=== PATIENT | male | born 1955 | race Caucasian/White ===

== ENCOUNTER 2022-09-06 20:53 | Emergency (ER) | payer MEDICARE, MEDICAID ==
[~2022-09-06] VITALS: Ht 175.3 cm; Wt 75.0 kg
[2022-09-06 21:33] LABS: BASOPHILS # (AUTO) 0.1 X10'3 (0-0.2); BASOPHILS % (AUTO) 0.7 % (0-1); EOSINOPHILS # (AUTO) 0.2 X10'3 (0-0.9); EOSINOPHILS % (AUTO) 2.7 % (0-6); HEMATOCRIT 41.6 % (42.0-52.0); HEMOGLOBIN 13.8 g/dl (14.0-17.9); LYMPHOCYTES # (AUTO) 1.8 X10'3 (1.1-4.8); LYMPHOCYTES % (AUTO) 22.9 % (21-51); MEAN CORPUSCULAR HEMOGLOBIN 30.2 PG (27.0-31.0); MEAN CORPUSCULAR HGB CONC 33.2 g/dL (33.0-36.5); MEAN CORPUSCULAR VOLUME 90.8 FL (78-98); MONOCYTES # (AUTO) 0.8 X10'3 (0-0.9); MONOCYTES % (AUTO) 10.4 % (2-12); NEUTROPHILS % (AUTO) 63.3 % (42-75); PLATELET COUNT 204 X10'3 (140-440); RED BLOOD COUNT 4.58 X10'6 (4.70-6.10); RED CELL DISTRIBUTION WIDTH 14.9 % (11.5-14.5); WHITE BLOOD COUNT 7.8 X10'3 (4.5-11.0)
[2022-09-06 21:50] LABS: ALANINE AMINOTRANSFERASE 37 U/L (12-78); ALBUMIN 3.8 G/DL (3.4-5.0); ALBUMIN/GLOBULIN RATIO 0.9 (1.1-1.5); ALKALINE PHOSPHATASE 116 IU/L (46-116); ANION GAP 8 (8-16); ASPARTATE AMINO TRANSFERASE 25 U/L (10-37); BILIRUBIN,TOTAL 0.4 MG/DL (0.1-1.0); BLOOD UREA NITROGEN 21 MG/DL (7-18); BUN/CREATININE RATIO 22.3 (10.0-20.0); CALCIUM 9.2 MG/DL (8.5-10.1); CHLORIDE 104 MMOL/L (99-107); CREATININE 0.94 MG/DL (0.60-1.10); GLUCOSE 121 MG/DL (70-104); SODIUM 139 MMOL/L (135-145); TOTAL CARBON DIOXIDE 27.2 MMOL/L (24-32); eGFR 80 ML/MIN
[2022-09-07 02:00] VITALS: BP 155/100
== END 2022-09-07 02:01 | disposition home or self-care (01) ==
LOC: ER 20:53
DX: R06.02 Shortness of breath (principal); I11.0 Hypertensive heart disease with heart failure; I50.9 Heart failure, unspecified; E78.00 Pure hypercholesterolemia, unspecified
CPT/HCPCS: 36415; 71045; 80053; 83880; 84484; 85025; 93005; 99285

== ENCOUNTER 2023-10-30 10:05 | Day surgery (SDC) | payer MEDICARE, MEDICAID ==
[2023-10-30] VITALS (11 sets, daily range): BP systolic 103–158; BP diastolic 54–106; PULSE 61–75; RESP 12–18; TEMP 98.3; O2SAT 93–96
[~2023-10-30] VITALS: Ht 172.7 cm; Wt 95.3 kg
[2023-10-30] MEDS: normal saline 1000ml 1,000 ML IV SCH (10:40)
[2023-10-30] MEDS ORDERED: FURO20TA4 PO (10:52)
[2023-10-30] MEDS ORDERED: METO-411 PO (10:52)
[2023-10-30] MEDS ORDERED: MULT-1249 PO (10:52)
[2023-10-30] MEDS ORDERED: ASCO-105 PO (10:52)
[2023-10-30] MEDS ORDERED: SERT-432 PO (10:52)
[2023-10-30] MEDS ORDERED: DIVA-74 PO (10:52)
[2023-10-30] MEDS ORDERED: ATOR-2 PO (10:52)
[2023-10-30] MEDS ORDERED: CHOL100017 PO (10:52)
[2023-10-30] MEDS ORDERED: ASPI-1397 PO (10:52)
[2023-10-30] MEDS: MIDAZolam 1mg/ml 10ml vial IV ONE (13:11)
[2023-10-30] MEDS: fentaNYL/PF 50MCG/1 ML 2ML syringe IV ONE (13:11)
== END 2023-10-30 14:10 | disposition home or self-care (01) ==
LOC: SSTAY O 10:05
PROVIDERS: ATTEND Student in an Organized Health Care Education/Training Program
DX: R94.39 Abnormal result of other cardiovascular function study (principal); I11.9 Hypertensive heart disease without heart failure; I25.10 Atherosclerotic heart disease of native coronary artery without angina pectoris; E78.00 Pure hypercholesterolemia, unspecified; M19.90 Unspecified osteoarthritis, unspecified site; Z79.82 Long term (current) use of aspirin; Z79.899 Other long term (current) drug therapy
CPT/HCPCS: 94760; C8925; J2250; J3010; J7030; J7040; 93312

== ENCOUNTER 2024-05-02 05:44 | Day surgery (SDC) | payer MEDICARE, MEDICAID ==
[2024-04-30 11:33] LABS: BASOPHILS % (AUTO) 0.6 % (0-1); EOSINOPHILS # (AUTO) 0.2 X10'3 (0-0.9); EOSINOPHILS % (AUTO) 2.7 % (0-6); LYMPHOCYTES # (AUTO) 1.4 X10'3 (1.1-4.8); LYMPHOCYTES % (AUTO) 19.2 % (21-51); MEAN CORPUSCULAR HEMOGLOBIN 29.7 PG (27.0-31.0); MEAN CORPUSCULAR HGB CONC 33.1 g/dL (33.0-36.5); MEAN CORPUSCULAR VOLUME 89.6 FL (78-98); MEAN PLATELET VOLUME 8.8 FL (7.4-10.4); MONOCYTES # (AUTO) 0.7 X10'3 (0-0.9); MONOCYTES % (AUTO) 9.9 % (2-12); NEUTROPHILS # (AUTO) 4.8 X10'3 (1.8-7.7); NEUTROPHILS % (AUTO) 67.6 % (42-75); PRE OP HEMATOCRIT 42.8 % (42.0-52.0); PRE OP HEMOGLOBIN 14.2 g/dL (14.0-17.9); PRE OP PLATELET COUNT 270 X10'3 (140-440); PRE OP WHITE BLOOD COUNT 7.1 10'3 (4.8-10.8); RED BLOOD COUNT 4.77 X10'6 (4.70-6.10); RED CELL DISTRIBUTION WIDTH 14.7 % (11.5-14.5)
[2024-04-30 12:01] LABS: ALBUMIN 3.8 G/DL (3.4-5.0); ALKALINE PHOSPHATASE 63 IU/L (46-116); BLOOD UREA NITROGEN 16 MG/DL (7-18); BUN/CREATININE RATIO 18.4 (10.0-20.0); CALCIUM 9.5 MG/DL (8.5-10.1); CHLORIDE 106 MMOL/L (99-107); CREATININE 0.87 MG/DL (0.60-1.10); PRE OP ALT 33 U/L (30-65); PRE OP ANION GAP 6 (8-16); PRE OP AST 23 U/L (10-37); PRE OP BILIRUB, TOTAL 0.3 MG/DL (0.0-1.0); PRE OP GLUCOSE 77 MG/DL (70-104); PRE OP POTASSIUM 4.2 MMOL/L (3.4-5.1); PRE OP SODIUM 141 MMOL/L (135-145); TOTAL CARBON DIOXIDE 28.9 MMOL/L (24-32); TOTAL PROTEIN 7.8 G/DL (6.4-8.2); eGFR 87 ML/MIN
[2024-05-02] VITALS (15 sets, daily range): BP systolic 102–145; BP diastolic 66–99; PULSE 64–76; RESP 11–22; TEMP 98; O2SAT 90–98
[~2024-05-02] VITALS: Ht 175.3 cm; Wt 96.0 kg
[~2024-05-02 05:44] MED LIST: ACET-1025 PO; ACET-3414; ASCO-105 PO; ASPI-1397 PO; ATOR-2 PO; CHOL10006 PO; DIVA-74 PO; FENO160T; FURO20TA4 PO; METO-411 PO; MULT-1249 PO; SERT-432 PO; SOOTHE; [UNRECOGNIZED DRUG - OTHER]; ringers solution, lacted 1,000 ML IV SCH
[2024-05-02] MEDS: DOCUMENT DATE & TIME OF BETA-BLOCKER PO ONE (06:01)
[2024-05-02] MEDS: famotidine 20mg tablet PO ONE (06:29)
[2024-05-02] MEDS ORDERED: sevoflurane 250ml liquid IH ONE (07:25)
[2024-05-02] MEDS ORDERED: fentaNYL/PF 50MCG/1 ML 2ML syringe ONE (07:33)
[2024-05-02] MEDS ORDERED: midazolam 1 mg/ML 2ml injection ONE (07:33)
[2024-05-02] MEDS ORDERED: propofol inj 20 ML IV ONE (07:35)
[2024-05-02] MEDS ORDERED: LIDOcaine 1%/PF 5ML 10 MG/ML VIAL ONE (07:35)
[2024-05-02] MEDS ORDERED: ondansetron/PF 4mg/2ml inj IV PRN (07:40)
[2024-05-02] MEDS ORDERED: morphine 2 MG/ML inj. syringe IV PRN (07:40)
[2024-05-02] MEDS ORDERED: morphine 4 MG/ML inj SYRINge IV PRN (07:40)
[2024-05-02] MEDS ORDERED: enalaprilat 1.25mg/ml 2ml vial IV PRN (07:40)
[2024-05-02] MEDS ORDERED: acetaminophen 1,000mg/100ml IV 100 ML IV PRN (07:40)
[2024-05-02] MEDS ORDERED: ringers solution, lacted 1,000 ML IV SCH (07:40)
[2024-05-02] MEDS ORDERED: labetalol 20mg/4ml (5mg/ml) syringe IV PRN (07:40)
[2024-05-02] MEDS ORDERED: proCHLORperazine 10 MG/2 ml inj IV PRN (07:40)
[2024-05-02] MEDS ORDERED: meperidine/PF 25mg/ml syringe IV PRN ×3 (07:40)
[2024-05-02] MEDS ORDERED: rocuronium 10mg/ml inj IV ONE (08:02)
[2024-05-02] MEDS ORDERED: dexamethasone sod phosphate 4mg/ml inj. ONE (08:02)
[2024-05-02] MEDS: albuterol 2.5 MG/3 ML nebule NEB ONE (10:11)
== END 2024-05-02 10:37 | disposition home or self-care (01) ==
LOC: PAS 05:44
PROVIDERS: ATTEND Internal Medicine Critical Care Medicine
DX: R91.8 Other nonspecific abnormal finding of lung field (principal); E66.9 Obesity, unspecified; E78.5 Hyperlipidemia, unspecified; Z79.899 Other long term (current) drug therapy; Z98.890 Other specified postprocedural states; Z87.820 Personal history of traumatic brain injury; F32.A Depression, unspecified; Z68.31 Body mass index [BMI] 31.0-31.9, adult
CPT/HCPCS: 31624; 31627; 31628; 31629; 31653; 36415; 71250; 80053; 82948; 85025; 87015; 87070; 87116; 87206; 93005; 94640; 94760; A4615; A4618; J1100; J2250; J2405; J2704; J2710; J3010; J3490; J7120; Z7506; Z7508; Z7512; Z7610; 31622; 31625; 31626; 31654

== ENCOUNTER 2024-05-07 10:00 | Emergency (ER) | payer MEDICARE, MEDICAID ==
[~2024-05-07] VITALS: Ht 165.1 cm; Wt 99.5 kg
[~2024-05-07 10:00] MED LIST changes: -ringers solution, lacted 1,000 ML IV SCH
[2024-05-07] MEDS ORDERED: HYDR-3965 PO (11:45)
[2024-05-07] MEDS: HYDROcodone/acetaminophen 5mg/325mg tablet PO ONE (11:52)
[2024-05-07 11:55] VITALS: BP 164/88; PULSE 78; RESP 18; TEMP 97.7; O2SAT 97
== END 2024-05-07 11:57 | disposition home or self-care (01) ==
LOC: ER 10:01
DX: S29.8XXA Other specified injuries of thorax, initial encounter (principal); R07.89 Other chest pain; I11.0 Hypertensive heart disease with heart failure; I50.9 Heart failure, unspecified; E78.00 Pure hypercholesterolemia, unspecified; Z79.899 Other long term (current) drug therapy; Z79.82 Long term (current) use of aspirin; W18.39XA Other fall on same level, initial encounter; Y93.89 Activity, other specified; Y92.89 Other specified places as the place of occurrence of the external cause; Y99.8 Other external cause status
CPT/HCPCS: 71101; 93005; 99283

== ENCOUNTER 2024-06-07 09:42 | Emergency (ER) | payer MEDICARE, MEDICAID ==
[~2024-06-07] VITALS: Ht 176.5 cm; Wt 93.0 kg
[~2024-06-07 09:42] MED LIST changes: +HYDR-3965 PO
[2024-06-07 10:09] LABS: BILIRUBIN,URINE NEGATIVE (Neg); CLARITY,URINE CLEAR (Clear); COLOR,URINE YELLOW (Yellow); GLUCOSE, URINE NEGATIVE (Neg); KETONES,URINE NEGATIVE (Neg); LEUKOCYTE ESTERASE ,URINE NEGATIVE (Neg); NITRITES, URINE NEGATIVE (Neg); OCCULT BLOOD,URINE NEGATIVE (Neg); PROTEIN,URINE NEGATIVE (Neg); UROBILINOGEN,URINE 0.2 E.U/dL (0.2-1.0)
[2024-06-07 10:17] LABS: UA COLLECTION TYPE URINAL
[2024-06-07] MEDS: LIDOcaine 1% W/epiNEPHrine 1:100,000 20ml vial IJ ONE (11:15)
[2024-06-07 11:21] VITALS: BP 146/96; PULSE 66; RESP 16; TEMP 97.9; O2SAT 95
== END 2024-06-07 11:23 | disposition home or self-care (01) ==
LOC: ER 09:42
DX: S01.81XA Laceration without foreign body of other part of head, initial encounter (principal); E78.00 Pure hypercholesterolemia, unspecified; I11.0 Hypertensive heart disease with heart failure; I50.9 Heart failure, unspecified; Z79.899 Other long term (current) drug therapy; W19.XXXA Unspecified fall, initial encounter; Y93.01 Activity, walking, marching and hiking; Y92.89 Other specified places as the place of occurrence of the external cause; Y99.8 Other external cause status
CPT/HCPCS: 12011; 70450; 81003; 99284; Z7610

== ENCOUNTER 2024-10-10 11:34 | Emergency (ER) | payer MEDICARE, MEDICAID ==
[~2024-10-10] VITALS: Ht 175.3 cm; Wt 81.8 kg
[~2024-10-10 11:34] MED LIST changes: -HYDR-3965 PO
--- NOTE | 2024-10-10 12:50 | RADIOLOGY REPORT ---
EXAM: CT CT HEAD HISTORY: GROUND LEVEL FALL COMPARISON: CT CT HEAD on DOS: 06/07/24 TECHNIQUE: Noncontrast axial CT images of the head were performed. Sagittal and coronal reformatted i mages were obtained. This CT exam was performed using 1 or more of the following dose reduction techn iques: Automated exposure control, adjustment of the mA and/or kv according to patient size, or the u se of iterative reconstruction techniques. Radiation Dose: CTDI volume is 68.73 mGy. Dose-length product is 1224.01 mGy*cm FINDINGS: There is global brain atrophy. 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 There are old lacunar inf arcts of the bilateral cerebellar hemispheres, bilateral basal ganglia, and left external capsule. No intracranial hemorrhage, mass, midline shift, hydrocephalus, or evidence of acute large vessel infar ct. There are mucous retention cysts in the bilateral maxillary sinuses. The bilateral mastoid air ce lls and middle ear spaces are clear. No cranial fracture. There is left parietal scalp edema. There m ay be frontal supraorbital scalp edema and/or scalp scarring. IMPRESSION: 1. Chronic ischemic changes without evidence of acute intracranial process. 2. Mild paranasal sinus disease. 3. Left parietal scalp scarring without underlying cranial fracture. There may also be frontal supra orbital scalp edema versus scarring.
--- NOTE | 2024-10-10 13:15 | RADIOLOGY REPORT ---
EXAM: CT CT CERVICAL SPINE INDICATION: GROUND LEVEL FALL EXAM DATE: 10/10/2024 11:57 AM COMPARISON: None TECHNIQUE: Noncontrast axial CT images of the cervical spine were performed. Sagittal and coronal ref ormatted images were obtained. Radiation optimization: All CT scans at this facility use at least one of these dose optimization techniques: automated exposure control mA and/or kV adjustment per patie nt size (includes targeted exams where dose is matched to clinical indication) or iterative reconstr uction. Radiation Dose Information: CT Dose: CTDI volume is 23.44 mGy. Dose-length product is 483.52 mGy*cm FINDINGS: No fracture or listhesis of the cervical spine. There is straightening of normal cervical lordosis. T here is moderate to severe degenerative disc disease and facet arthropathy there is mild spinal canal stenosis at C5-C6 and C6-C7. No high-grade spinal canal stenosis at any level in the cervical spine . There is significant neural foraminal stenosis on the left at C6-C7. There is narrowing of the uppe r trachea on the most caudal images, with anterior bowing of the posterior wall (image 1, series 2). IMPRESSION: 1. No fracture of the cervical spine. 2. Degenerative disc disease and facet arthropathy with significant neural foraminal stenosis on the left at C6-C7. These findings may correspond to left upper extremity radicular symptoms in the C7 ne rve root distribution. 3. 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 The trachea is not fully imaged here. Recommend pulmonology consultation if this is not already known.
--- NOTE | 2024-10-10 15:52 | Physician Documentation ---
History of Present Illness ~ Chief Complaint: Mechanical Fall Stated Complaint: GROUND LEVEL FALL Time Seen by MD: 14:52 Primary Medical Doctor: Dr. Ham HPI This is a 69-year-old gentleman who comes in for evaluation of potential traumatic injuries sustained after feet tripped over his wheelchair. He struck the back of his head. No loss of consciousness. No blood thinners. Has no complaints at the time of my examination. Denies any chest pain, difficulty breathing, abdominal pain. Tetanus within 5 Years?: No (unknown) Medication Reconciliation Allergies: Coded Allergies: No Known Allergies (Unverified , 10/30/23) Scheduled Ascorbic Acid (Vitamin C), 1 TAB PO DAILY, (Reported) Aspirin (Aspirin EC), 1 TAB PO DAILY, (Reported) Atorvastatin Calcium (Atorvastatin Calcium), 1 TAB PO DAILY, (Reported) Cholecalciferol (Vitamin D), 1 CAP PO DAILY, (Reported) Divalproex Sodium (Divalproex Sodium), 1 TAB PO DAILY, (Reported) Fenofibrate (Fenofibrate), 1 DAILY, (Reported) Furosemide (Furosemide), 1 TAB PO DAILY, (Reported) Metoprolol Succinate (Metoprolol Succinate), 1 TAB PO DAILY, (Reported) Multivitamin (Multivitamin), 1 TAB PO DAILY, (Reported) Sertraline HCl (Sertraline HCl), 1 TAB PO QPM, (Reported) Scheduled PRN Acetaminophen (Tylenol Extra Strength), 1 TAB PO TID PRN PRN for pain or fever, (Reported) Miscellaneous Medications Acetaminophen/Diphenhydramine (Tylenol Pm Ex-Strength Caplet), (Reported) [[employer]], (Reported) [Soothe], (Reported) Past Medical History Past Medical History: Seizures, Congestive Heart Failure, High Cholesterol, Hypertension Past Surgical History: no surgical history Alcohol Use: None Drug Use: none Review of Systems ROS 10 point review of systems was performed and unless noted above in HPI is negative for acute process/complaint. Physical Exam Vital Signs: Temperature: 98.2, Source: Temporal, Heart Rate: 66, Respiratory Rate: 18, BP: 153/94, Pulse Oximetry: 94, Weight: 81.820 Oxygen Flow Rate: 0 Physical Exam GENERAL: Awake, alert, oriented, GCS 15, no apparent distress, non-toxic appearing, answers questions, follows commands appropriately. HEENT: There is a punctate skin defect on the left occiput, no active bleeding, too small to repair normocephalic, pupils equal, extraocular muscles intact, sclerae anicteric, mucus membranes moist, oropharynx is clear, no stridor. NECK: supple, full active range of motion, trachea midline, no thyromegaly, no lymphadenopathy, no JVD. CARDIOVASCULAR: regular rate/rhythm, no murmurs/gallops/rubs, Pulses are 2+ in all extremities and symmetric. Capillary refill less than 2 seconds. PULMONARY: Nonlabored, good air movement ,no respiratory distress, speaking in full sentences, clear to auscultation bilaterally, no wheezing, no ronchi, no rales, no accessory muscle use. GASTROINTESTINAL: Soft, non-tender, non-distended, normal active bowel sounds, no organomegaly, no pulsatile masses, no CVA tenderness. NEUROLOGIC: Lucid with normal mental status. Normal facial symmetry. Moves all extremities symmetrically and with purpose. No truncal ataxia. Speech is fluid without evidence of dysarthria or aphasia, no focal deficits appreciated. MUSCULOSKELETAL: There is full range of motion of all extremities. There is no joint pain or joint swelling or joint erythema. There is no muscle pain or tenderness or swelling. EXTREMITIES: warm, well-perfused, no cyanosis, no clubbing, no edema, no acute deformities. Skin: warm, dry, no rashes or lesions, no jaundice, no petechiae orpurpura. No ecchymosis. PSYCHIATRIC: Normal affect, normal insight, normal concentration. Focused exam: [No cervical tenderness to palpation, no step-offs] Progress Results/Orders Results/Orders Orders - JOHNATHON SHEIKH DO Ct Head (10/10/24 12:03) Ct Cervical Spine (10/10/24 12:03) Completed Orders - JOHNATHON SHEIKH DO Ct Head (10/10/24 12:03) Ct Cervical Spine (10/10/24 12:03) Vital Signs 10/10/24 10/10/24 10/10/24 11:42 15:02 15:18 Temp 98.2 Pulse 68 66 Resp 15 18 B/P (MAP) 151/95 153/94 (113) Pulse Ox 95 94 O2 Flow Rate 0 Medical Decision Making Findings Facility Status: ED Holds, RME process The plan was discussed with the patient, who demonstrates clear understanding of the plan and is in agreement with the plan unless otherwise noted in the chart. All questions have been answered, all concerns were addressed unless otherwise documented. I was available throughout their ED stay for frequent reassessment and questions. Differential Diagnoses (considered and possible or likely): [Ground level fall, acute traumatic pain, closed head injury, concussion, subdural, subarachnoid, cervical spine fracture or subluxation] ??Differential Diagnoses (considered and unlikely, not requiring evaluation cur rently): [No evidence of lateralizing signs to suspect a stroke] MDM Data Please see HPI for the following: Independent Historians and external Records Review. Historian: [Patient] Independent Historians: ?[Record review] Medication Management: [Reviewed medication list] Social History and determinants: [Reviewed] Please see the body of the note for the following: Any independent interpretations of ECG, imaging studies. All vitals signs/haemodynamics, ordered tests were independently reviewed and interpreted by myself. Nursing triage complaint and vitals reviewed, additional nursing notes were reviewed as available and I agree unless otherwise noted or documented in contradiction in the chart Vital Signs: Independently reviewed Labs: Independently interpreted Imaging: Independently interpreted Old Medical Records: Independently reviewed, see [facility] for relevant summary and information Pulse Oximetry: [99%] interpreted as [normal on room air] by me [Compounding Technician: [Regular Rate, Regular rhythm, no ectopy, NSR] reviewed and interpreted by me] Additionally notably showing: [Hemodynamically stable. CT head shows no acute bleed, CT C-spine shows no fracture.] Tests considered but not ordered include: [Hematologic workup has been considered but does not appear to be necessary given mechanical nature of the injury.] Social Determinants of Health Impact: Patient was evaluated in [facility], or [facility] [place] to healthcare due to below par ratio of patient to medical providers. [] Comorbid Conditions Impacting Present Evaluation and Care/Treatment: [Multiple, see list] Management Discussions with other Healthcare Providers: [None] Treatment and Disposition Medication Management (Given or considered): []. See EMR for details Consideration for Hospitalization/Escalation/Deescalation of Care: Admission for observation has been considered, [however the patient is able to tolerate p.o., their symptoms are controlled, they are able to rely on oral medications, and their chief complaint/diagnosis can be managed on outpatient basis.] ?ED Course:?[No clinical deterioration] ?Shared decision making:?[Patient is hemodynamically stable for discharge home with follow with their primary care provider. [ ] Specific and cautious return precautions provided and discussed with full understanding. Any incidental findings were also discussed and follow up recommendations given. [] All questions answered. Patient/family were able to verbalize back return precautions. Patient/family agree to plan. Copies of imaging and laboratory studies were provided.] Code status:?FULL Please see the full Electronic Medical Record for full details of nursing documentation, medications list, other records of complete past medical history and conditions, vital signs, laboratory studies, and any radiologic study inter pretations by radiologists. Portions of this note were completed using enymotion dictation software and as a result there may exist minor errors in spelling. I have reviewed elements of past family and social history and agree as included in note. Departure Disposition: 01 HOME / SELF CARE / HOMELESS Impression: Primary Impression: Ground-level fall Additional Impressions: Closed head injury Puncture wound of scalp Acute traumatic pain Condition: Improved Discharge Instructions: Head Injury, Adult Referrals: NO PRIMARY CARE PROVIDER (PCP) Education Educated: Patient, Other Educated regarding: diagnosis, treatment, prognosis, need for follow up Signature Scribe Signature: No scribe Attestation: This note accurately reflects clinical decisions, work performed by myself, Johnathon Sheikh, JOHNATHON BURNS DO Oct 10, 2024 15:52
[2024-10-10] MEDS: TETanus/Pertussis (Acell)/Diphther VAC/PF (Tdap-Adult) 0.5ml syringe IMVAC ONE (16:37)
[2024-10-10 16:50] VITALS: BP 130/92; PULSE 64; RESP 16; TEMP 98.2; O2SAT 95
== END 2024-10-10 16:45 | disposition home or self-care (01) ==
LOC: ER 11:35
DX: S01.03XA Puncture wound without foreign body of scalp, initial encounter (principal); G89.11 Acute pain due to trauma; E78.00 Pure hypercholesterolemia, unspecified; I11.0 Hypertensive heart disease with heart failure; I50.9 Heart failure, unspecified; Z79.82 Long term (current) use of aspirin; Z23 Encounter for immunization; W18.30XA Fall on same level, unspecified, initial encounter; Y93.89 Activity, other specified; Y92.89 Other specified places as the place of occurrence of the external cause; Y99.8 Other external cause status
CPT/HCPCS: 70450; 72125; 90715; 99285; A6402; G0008; J7030; 90471; A6449